=== PATIENT | female | born 2000 | race Two or more races ===

== ENCOUNTER 2025-02-01 23:26 | Emergency (ER) | payer OTHER, SELFPAY ==
[2025-02-01 23:27] VITALS: BMI 44.3
--- NOTE | 2025-02-01 23:31 | EKG_ITS ---
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
[2025-02-01 23:43] VITALS: BP 132/83; PULSE 84; RESP 18; TEMP 37.1; O2SAT 100
--- NOTE | 2025-02-02 01:46 | EDNOTE_ITS ---
<Statement entered by Sobeida Hirsch MD - 04/11/25 19:13> As co-signing physician, I was present and available for consult prn. I concur with the plan and care as documented by the midlevel provider. ED General RME/HPI General Chief complaint: Chest Pain Stated complaint: CHEST PAIN AND VOMITING, TINGLING TO FACE 5 HOURS Time Seen by Provider: 02/02/25 01:27 Arrival date/time: 02/01/25 23:26 RME / HPI RME / HPI narrative: 24-year-old female presents with a 2-week history of pain in her chest. She has a history of GERD and takes a PPI, unknown name. She has been taking her medication. She does not take any H2 blockers or acid reducers like Tums, Rolaids, or Maalox. Today she started experiencing shocking type pains around her chest which she describes as ugly . She has had excessive belching and gas. She has had nausea and vomiting. Tonight she ate Pasta with garlic and an oily sauce. She denies shortness of breath but states she has anxiety because of her symptoms. Related Data Previous Rx's ?Medication ?Instructions ?Recorded aluminum-mag hydroxide-simethicone 15 ml PO Q6H PRN in digestion #900 02/02/25 400 mg-400 mg-40 mg/5 mL oral susp mL (Maalox Maximum Strength) famotidine 40 mg tablet (Pepcid) 40 mg PO QDAY GERD #3 0 tabs 02/02/25 Allergies Allergy/AdvReac Type Severity Reaction Status Date / Time latex Allergy RASH Verified 02/01/25 23:27 Review of Systems Review of Systems Systems Reviewed: All systems reviewed, normal except as documented Past Medical History Social History SMOKING STATUS: Never smoker ED Exam Narrative Physical exam: Alert and oriented 25-year-old female, no acute distress. Vital signs blood pressure 132/83, pulse 84, respirations 18 and nonlabored, temperature 98.7, O2 sat 100% on room air. Lungs are clear, regular rate and rhythm. Abdomen is soft with mild epigastric tenderness. No rebound or guarding is noted. Course Course Course Narrative: Labs reveal a normal white count of 6.7, minimally well H&H of 11.7/34.0 with normal platelets. Chemistry Panel reveals minimally elevated chloride of 108, normal renal function, normal glucose, normal magnesium, normal LFTs, LDH, troponin, and BNP. Urinalysis reveals clear yellow urine with a specific gravity of 1.936 with negative nitrites and positive leukocyte esterase with no bacteria. Urine tox screen is negative. Chest x-ray reveals: No acute process. EKG reveals sinus rhythm with no T wave or ST changes. Patient was initially given viscous lidocaine 15 mL mixed with Maalox 30 mL p.o. She was also given aspirin 162 mg p.o. Quality Measures none Orders Category Date Time Status EKG (ED ONLY) *Do not use* NOW Care 02/01/25 23:31 Completed EKG (ED Only) Stat Exams 02/01/25 23:31 Draft XR chest 2V Stat Exams 02/02/25 01:50 Completed B-Type Natriuretic Peptide Stat Lab 02/02/25 05:17 Completed CBC Stat Lab 02/02/25 05:17 Completed Comprehensive Metabolic Panel Stat Lab 02/02/25 05:17 Completed Drug Screen,Urine Stat Lab 02/02/25 04:21 Completed LDH (Lactate Dehydrogenase) Stat Lab 02/02/25 05:17 Completed Magnesium Stat Lab 02/02/25 05:17 Completed Troponin I Stat Lab 02/02/25 05:17 Completed Urinalysis Stat Lab 02/02/25 04:21 Completed Aspirin Chew Med 02/02/25 03:39 Discontinued 162 mg PO X1 ONE Lidocaine 2% Viscous [Xylocaine 2% Viscous] Med 02/02/25 01:50 Discontinued 15 ml PO X1 ONE mg Hyd/Al Hyd/Jenna Susp [Maalox Susp] Med 02/02/25 01:50 Discontinued 30 ml PO X1 ONE Vital Signs Vital signs: Vital Signs Temperature 98.7 F 02/01/25 23:43 Pulse Rate 84 02/01/25 23:43 Respiratory Rate 18 02/01/25 23:43 Blood Pressure 132/83 H 02/01/25 23:43 Pulse Oximetry (%) 100 02/01/25 23:43 Oxygen Delivery Method Room Air 02/01/25 23:43 Discharge Plan Plan Patient Disposition: HOME (Self Care) Discharge Disposition comment: Stable and Improved Prescriptions/Referrals Prescriptions/Med Rec: New famotidine [Pepcid] 40 mg tablet 40 mg PO QDAY Qty: 30 0RF alum-mag hydroxide-simeth [Maalox Maximum Strength] 400-400-40 mg/5 mL suspension 15 ml PO Q6H PRN (Reason: indigestion) Qty: 900 0RF Referrals: Jamie Sheriff MD [Primary Care Provider] - In 1 week Problem List Clinical Impression: Non-cardiac chest pain, GERD (gastroesophageal reflux disease) Patient/Caregiver Discharge Instructions Education Materials: GERD Lifestyle Changes, ED Chest Pain, Noncardiac, ED GERD (Adult) Additional Instructions: Follow-up with your primary care physician in 24 to 48 hours. Return to the ED for any new or worsening symptoms. Print Language: Luxembourgish Stand Alone Forms: [employer] Award Info., Patient Portal Info Letter PA/LOBSTER FISHERMAN Supervising Physician PA/LOBSTER FISHERMAN Supervising Physician: Dr. Hirsch MDM Narrative MDM hospital course (for use when minimal MDM required): 24-year-old female presents with a 2-week history of pain in her chest. She has a history of GERD and takes a PPI, unknown name. She has been taking her medication. She does not take any H2 blockers or acid reducers like Tums, Rolaids, or Maalox. Today she started experiencing shocking type pains around her chest which she describes as ugly . She has had excessive belching and gas. She has had nausea and vomiting. Tonight she ate Pasta with garlic and an oily sauce. She denies shortness of breath but states she has anxiety because of her symptoms. Alert and oriented 25-year-old female, no acute distress. Vital signs blood pressure 132/83, pulse 84, respirations 18 and nonlabored, temperature 98.7, O2 sat 100% on room air. Lungs are clear, regular rate and rhythm. Abdomen is soft with mild epigastric tenderness. No rebound or guarding is noted. Labs reveal a normal white count of 6.7, minimally well H&H of 11.7/34.0 with normal platelets. Chemistry Panel reveals minimally elevated chloride of 108, normal renal function, normal glucose, normal magnesium, normal LFTs, LDH, troponin, and B PRACTICE LEAD. Urinalysis reveals clear yellow urine with a specific gravity of 1.936 with negative nitrites and positive leukocyte esterase with no bacteria. Urine tox screen is negative. Chest x-ray reveals: No acute process. EKG reveals sinus rhythm with no T wave or ST changes. Patient was initially given viscous lidocaine 15 mL mixed with Maalox 30 mL p.o. She was also given aspirin 162 mg p.o. Clinical Information Provided by: patient Medical Records reviewed None Meds/Rx considered, not ordered None Labs/Rad/Tests considered, not ordered None Chronic Illness/Social Conditions which may negatively complicate care or outcome(s)-explain: None or not applicable Labs Lab(s) Interpretation(s): As noted above Imaging Imaging Interpretation(s): As noted above Medication Administration(s) Medication Administration History Discontinued Medications Al Hydrox/Mg Hydrox/Simethicone (Mg Hyd/Al Hyd/Jenna (Maalox Reg) Susp 30 Ml Udc) 30 ml PO X1 ONE Stop: 02/02/25 01:51 Last Admin: 02/02/25 01:57 Dose: 30 ml Documented By: BRUCE Aspirin (Aspirin 81 Mg Chew) 162 mg PO X1 ONE Stop: 02/02/25 03:40 Last Admin: 02/02/25 04:03 Dose: 162 mg Documented By: BRUCE Lidocaine HCl (Lidocaine Viscous 2% 15 Ml Udc) 15 ml PO X1 ONE Stop: 02/02/25 01:51 Last Admin: 02/02/25 01:57 Dose: 15 ml Documented By: OA As noted above Diagnosis Differential Diagnosis ED Complaint MDM: Chest pain, cholecystitis, cholelithiasis, pancreatitis, GERD Diagnoses ruled out and/or further discussions: Noncardiac chest pain, GERD
--- NOTE | 2025-02-02 01:50 | XR_ITS ---
Examination: PA lateral chest 2 views TECHNIQUE: Upright PA and lateral chest 2 views Exam date time: February 02, 2025, 0216 hours INDICATION: Chest pain and vomiting beginning 5 hours ago. FINDINGS: Normal heart size. No aspiration pneumonia. Intact osseous structures IMPRESSION: No aspiration pneumonia
[2025-02-02] MEDS: LIDOCAINE VISCOUS 2% 15 ML UDC PO (01:57)
[2025-02-02] MEDS: MG HYD/AL HYD/SIME (Maalox Reg) SUSP 30 ML UDC PO (01:57)
[2025-02-02 02:28] VITALS: BP 118/75; PULSE 73; RESP 17; TEMP 36.7; O2SAT 98
[2025-02-02] MEDS: ASPIRIN 81 MG CHEW 162 MG PO (04:03)
[2025-02-02 04:32] LABS: Collection Type, Urine Clean Catch
[2025-02-02 04:38] VITALS: BP 108/76; PULSE 73; RESP 17; TEMP 37; O2SAT 98
[2025-02-02 04:46] LABS: Amphetamine/Methamp Scrn,U Negative (Negative); Barbiturate Screen,Urine Negative (Negative); Benzodiazepines Screen,Urine Negative (Negative); Benzoylecgonine Screen, Ur Negative (Negative); Fentanyl Screen,Urine Negative (Negative); Opiate Screen,Urine Negative (Negative); THC Screen,Urine Negative (Negative)
[2025-02-02 04:59] LABS: Bilirubin,Urine Negative (Negative); Blood,Urine Negative (Negative); Clarity,Urine Clear (Clear/Hazy); Color,Urine Yellow (Lt Yel-Yel); Glucose, Urine Negative (Negative); Ketones,Urine Negative (Negative); Leukocyte Esterase,Urine Positive (Negative); Nitrite,Urine Negative (Negative); Protein,Urine Trace (Neg - Trace); RBC,Urine 1 /hpf (0-3); Specific Gravity,Urine 1.036 (1.001-1.035); Squamous Epithelial Cell,Urine 6 /hpf (0-5); Urobilinogen,Urine Negative mg/dL (0.0-1.0); WBC,Urine 2 /hpf (0-5)
[2025-02-02 05:58] LABS: Basophils # (Auto) 0.1 Thou/mm3 (0.0-0.2); Basophils % (Auto) 1 % (0-2.5); Eosinophils # (Auto) 0.1 Thou/mm3 (0.0-0.5); Eosinophils % (Auto) 2 % (0-10); Hemoglobin 11.7 g/dL (12.0-16.0); Immature Granulocytes % (Auto) 0 % (0-0); Immature Granulocytes Auto 0.01 Thou/mm3 (0.00-0.00); Lymphocytes # (Auto) 2.5 Thou/mm3 (1.0-4.8); Lymphocytes % (Auto) 38 % (10-50); Mean Corpuscular HGB Conc 34.4 g/dl (31.0-37.0); Mean Corpuscular Hemoglobin 28.1 pg (25.0-35.0); Mean Corpuscular Volume 82 fL (80-100); Monocytes # (Auto) 0.6 Thou/mm3 (0.0-0.8); Monocytes % (Auto) 9 % (0-12); Neutrophils # (Auto) 3.4 Thou/mm3 (1.8-7.7); Neutrophils % (Auto) 51 % (37-80); Nucleated Red Blood Cell % 0 /100 WBC (0); Platelet Count 293 Thou/mm3 (140-440); RDW Standard Deviation 40.8 fL (36.4-46.3); Red Blood Count 4.16 Miln/mm3 (4.00-5.20); White Blood Count 6.7 Thou/mm3 (3.6-11.0)
[2025-02-02 06:14] LABS: Alanine Aminotransferase 17 U/L (10-49); Albumin, Serum 4.4 gm/dL (3.5-5.0); Albumin/Globulin Ratio 1.8 (1.2-2.2); Alkaline Phosphatase 73 U/L (46-116); Anion Gap 11 (7-16); Aspartate Amino Transferase 14 U/L (0-34); BUN/Creatinine Ratio 16 Ratio (12-20); Bilirubin,Total 0.5 mg/dL (0.3-1.2); Blood Urea Nitrogen 13 mg/dL (9-23); Calcium 8.8 mg/dL (8.3-10.6); Calcium (Corrected) 8.8 mg/dL (8.5-10.1); Carbon Dioxide 23.6 mMol/L (20.0-31.0); Chloride 108 mMol/L (98-107); Creatinine (Component) 0.8 mg/dL (0.6-1.3); Estimated Creatinine Clearance 151.2 mL/min (>60); Globulin 2.4 gm/dL (2.3-3.5); Glucose 101 mg/dL (74-106); LDH (Lactate Dehydrogenase) 241 U/L (120-246); Magnesium 1.8 mg/dL (1.6-2.6); Osmolality,Calculated 285 (275-295); Potassium 3.7 mMol/L (3.4-5.1); Sodium 143 mMol/L (136-145); Total Protein 6.8 gm/dL (5.7-8.2); Troponin I < 0.002 ng/mL (0.0-0.045); eGFR > 60 See Note
[2025-02-02 07:34] LABS: B-Type Natriuretic Peptide < 20 pg/mL (0-100)
== END 2025-02-02 07:19 | disposition home or self-care (01) ==
PROVIDERS: Physician Assistant; Emergency Provider Emergency Medicine; PCP Internal Medicine
DX: K21.9 Gastro-esophageal reflux disease without esophagitis (principal); R07.89 Other chest pain; R94.31 Abnormal electrocardiogram [ECG] [EKG]
CPT/HCPCS: 36415; 71046; 80053; 80307; 81001; 83615; 83735; 83880; 84484; 85025; 93005; 99283; J3490; A9270